=== PATIENT | male | born 1995 | race Caucasian/White ===

== ENCOUNTER → 2018-02-12 20:17 | Emergency (ER) | payer BC ==
[~2018-02-12 20:17] MED LIST: Mouth Piece, Nicotine* 1 EACH CARTRIDGE INH PRN; Nicotine Inhaler* 10 MG AMP INH PRN
[2018-02-12 21:05] LABS: ABS Basophils 0 10^3/ul (0-0.2); ABS Eosinophils 0 10^3/ul (0-0.6); ABS Lymphocytes 1.7 10^3/ul (1.0-4.8); ABS Monocytes 0.5 10^3/ul (0-0.8); ABS Nucleated RBC 0 10^3/ul; Eosinophil % 0.5 % (0-6); Hematocrit 44 % (42-52); Lymphocyte % 23.4 % (25-47); Mean Corpuscular HGB Conc 34 g/dl (31-36); Mean Corpuscular Hemoglobin 29 pg (27-31); Mean Corpuscular Volume 85 fL (80-94); Mean Platelet Volume 8.2 um3 (7.4-10.4); Nucleated Red Blood Cells % 0.1; Platelet Count 225 10^3/ul (150-450); Red Blood Count 5.13 10^6/ul (4.00-5.40); Red Cell Distribution Width 13 % (10.5-15); White Blood Count 7.3 10^3/ul (3.5-10.8)
--- NOTE | 2018-02-12 21:09 | ED ---
Psychiatric Complaint - HPI Summary HPI Summary: A 23 y/o male c/o depression for the last couple years that has recently gotten worse over the past couple days. He states that he has no SI or self-harm ideation. He also c/o anxiety and being angry. His mother states that he would send texts to her like lifes not worth it or people who kill themselves aren t cowards, theyre smart. He is going to a counselor and a therapist who prescribed him Adderall and last week prescribed him Xanax. He was diagnosed with ADD a year ago. He also claims that him and his girlfriend broke up and that he hates school. He admits to smoking marijuana. He will see the [facility]. - History Of Current Complaint Chief Complaint: EDMentalHealth Time Seen by Provider: 02/12/18 20:40 Hx Obtained From: Patient Onset/Duration: Gradual Onset, Lasting Weeks, Still Present Timing: Constant Severity Initially: Moderate Severity Currently: Moderate Character: Depressed, Angry - Allergies/Home Medications Allergies/Adverse Reactions: Allergies Allergy/AdvReac Type Severity Reaction Status Date / Time No Known Allergies Allergy Verified 02/12/18 20:23 Home Medications: Home Medications ALPRAZolam [Xanax] 0.5 mg PO BID 02/12/18 [History Confirmed 02/12/18] Adderall Xr 20 mg Capsule 20 mg PO BID 02/12/18 [History Confirmed 02/12/18] PMH/Surg Hx/FS Hx/Imm Hx Sensory History: Denies: Hx Deafness Psychiatric History: Reports: Hx Anxiety Infectious Disease History: No Infectious Disease History: Denies: Traveled Outside the [place] in Last 30 Days - Family History Known Family History: Negative: Blood Disorder - Social History Alcohol Use: Occasionally Alcohol Amount: pt states he "hasn't drank in months" Substance Use Type: Reports: Marijuana Smoking Status (MU): Never Smoked Tobacco Review of Systems Negative: Fever Positive: Anxious, Depressed, Other - positive: angry All Other Systems Reviewed And Are Negative: Yes Physical Exam - Summary Physical Exam Summary: Appearance: Well appearing, no pain distress Skin: warm, dry, reflects adequate perfusion Head/face: normal Eyes: EOMI, CARLOS ENT: normal Neck: supple, non-tender Respiratory: CTA, breath sounds present Cardiovascular: RRR, pulses symmetrical Abdomen: non-tender, soft Bowel: present Musculoskeletal: normal, strength/ROM intact Neuro: normal, sensory motor intact, A&Ox3 Psych: Depressed affect Triage Information Reviewed: Yes Vital Signs On Initial Exam: Initial Vitals Temp Pulse Resp BP Pulse Ox 98.3 F 84 16 158/84 99 02/12/18 20:19 02/12/18 20:19 02/12/18 20:19 02/12/18 20:19 02/12/18 20:19 Vital Signs Reviewed: Yes Diagnostics - Vital Signs Vital Signs Temp Pulse Resp BP Pulse Ox 02/12/18 20:19 98.3 F 84 16 158/84 99 - Laboratory Result Diagrams: 02/12/18 21:00 02/12/18 21:00 Lab Statement: Any lab studies that have been ordered have been reviewed, and results considered in the medical decision making process. Re-Evaluation - Re-Evaluation First Eval Re-Evaluation Time: 21:00 Change: Unchanged Comment: Pt cleared for MHE Course/Dx - Course Course Of Treatment: A 23 y/o male c/o depression for the last couple years that has recently gotten worse over the past couple days. He states that he has no SI or self-harm ideation. Per mechanical engineering intern he will be discharged with adjustment disorder and anxiety. He will follow up with outpatient. - Differential Dx/Clinical Impression Differential Diagnosis/HQI/PQRI: Positive: Anxiety, Depression Provider Diagnosis: Adjustment disorder, Anxiety Discharge - Sign-Out/Discharge Documenting (check all that apply): Patient Departure - DC - Discharge Plan Condition: Stable Disposition: HOME Patient Education Materials: Anxiety (ED) Referrals: Lee Ann Duff MD [Primary Care Provider] - 3 Days () Additional Instructions: Follow up with outpatient. Return to the ED if you are experiencing any new or worsening symptoms. Per completion of a mental health evaluation, you are cleared for release and do not require inpatient psychiatric hospitalization at this time. Please go to nearest emergency room or call 911 if safety concerns arise or condition worsens. Important Phone Numbers: [facility]..............[phone] Suicide Prevention and Crisis Services........................ [phone] National Suicide Prevention Lifeline............................ 969-023-KXIZ (1801) [facility]....................... [phone] Alcoholics Anonymous............................................... [facility].............. [phone] [facility].............................................. - Billing Disposition and Condition Condition: STABLE Disposition: Home - Attestation Statements Document Initiated by Scribe: Yes Documenting Scribe: Chucho Mistry Provider For Whom Scribe is Documenting (Include Credential): Igor Harris Scribe Attestation: I, Chucho Mistry, scribed for Igor Bapemerita on 02/13/18 at 0217. Scribe Documentation Reviewed: Yes Provider Attestation: The documentation as recorded by the Chucho win accurately reflects the service I personally performed and the decisions made by me, Igor Harris
[2018-02-12 21:21] LABS: EGFR Non-African American 86.6 (>60)
[2018-02-12 21:25] LABS: Urine Appearance Clear; Urine Blood Negative (Negative); Urine Color Yellow; Urine Ketones Negative (Negative); Urine Protein Negative (Negative); Urine Specific Gravity 1.008 (1.010-1.030); Urine Urobilinogen Negative (Negative)
[2018-02-13 04:25] VITALS: BP 139/78
== END | disposition home or self-care (01) ==
LOC: ED 20:17
DX: F43.22 Adjustment disorder with anxiety (principal); F32.9 Major depressive disorder, single episode, unspecified
CPT/HCPCS: 36415; 80053; 80307; 80320; 80329; 81003; 84443; 85025; 99284; G0480